=== PATIENT | male | born 1985 | race Caucasian/White ===

== ENCOUNTER 2021-09-07 03:58 | Emergency (ER) | payer OTHER ==
[2021-09-07 04:16] VITALS: BP 124/106; PULSE 82
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
[2021-09-07] MEDS: Diphtheria,Pertussis(Acell),Tetanus Vaccine 0.5 ML Syringe IM ONE (05:11)
== END 2021-09-07 05:30 | disposition home or self-care (01) ==
LOC: LL.ED 03:58
DX: S01.531A Puncture wound without foreign body of lip, initial encounter (principal); Z72.0 Tobacco use; Z91.030 Bee allergy status; Z23 Encounter for immunization; Y04.0XXA Assault by unarmed brawl or fight, initial encounter
CPT/HCPCS: 73130-RT; 90471; 90715; 99283

== ENCOUNTER 2025-03-06 15:42 | Emergency (ER) | payer MEDICAID, OTHER ==
[2025-03-06] MEDS: Bacitracin Oint 1 GM U/D Packet ONE (16:28)
[2025-03-06] MEDS: Lidocaine 1% 5 ML VIAL ONE (16:28)
[2025-03-06] MEDS: Lidocaine 1% 5 ML VIAL INJECT ONE (16:30)
[2025-03-06] MEDS: Bacitracin Oint 1 GM U/D Packet TOP ONE (16:30)
== END 2025-03-06 17:00 | disposition home or self-care (01) ==
LOC: LL.ED 15:42
DX: S01.81XA Laceration without foreign body of other part of head, initial encounter (principal); Z91.030 Bee allergy status; F17.210 Nicotine dependence, cigarettes, uncomplicated; X58.XXXA Exposure to other specified factors, initial encounter; Y93.89 Activity, other specified
CPT/HCPCS: 12013; 99283; J2003